=== PATIENT | female | born 1950 | race Caucasian/White ===

== ENCOUNTER → 2016-11-14 | Outpatient (CLI) | payer MEDICARE, MEDICAID ==
--- NOTE | 2016-11-14 14:51 | ECGEPIP ---
Stationary ECG Study [facility] Test Date: 2016-11-14 Pat Name: PIPER RESENDEZ Department: Room: - Gender: F Measurement Operator: MIGDALIA : 1950 Requested By: León Thomason Order Number: [id number] Reading MD: León Brice Measurements Intervals Rainbow Rate: 60 P: 45 ID: [id number] QRS: 27 QRSD: 93 T: 51 QT: 407 QTc: 409 Interpretive Statements SINUS RHYTHM, Within normal limits. No prior ECG available for comparison at the time of interpretation. Electronically Signed On 11-14-2016 14:51:20 EST by León Brice
--- NOTE | 2016-11-14 15:17 | REP ---
Clinical: Preoperative assessment . Comparison: 11/25/2014 . Technique: PA and lateral. Findings: The mediastinum and cardiac silhouette are normal. The lung herrera demonstrate chronic stable changes without acute consolidation, effusion, or pneumothorax. The skeletal structures are intact and normal. Impression: 1. No acute cardiopulmonary process. Signed by Adal West MD 11/14/2016 03:09 P
[2016-11-14 15:37] LABS: ANION GAP 7 MEQ/L (8-16); BLOOD UREA NITROGEN 12 MG/DL (7-18); CARBON DIOXIDE LEVEL 28 MEQ/L (21-32); CHLORIDE LEVEL 110 MEQ/L (98-107); CREATININE FOR GFR 0.65 MG/DL (0.55-1.02); GLOMERULAR FILTRATION RATE > 60.0 (>45); GLUCOSE, FASTING 86 MG/DL (80-110); POTASSIUM SERUM 4.1 MEQ/L (3.5-5.1); SODIUM LEVEL 145 MEQ/L (136-145)
== END ==
LOC: M LAB 14:15
PROVIDERS: ATTEND Ophthalmology
DX: H02.423 Myogenic ptosis of bilateral eyelids (principal); H02.831 Dermatochalasis of right upper eyelid; H02.834 Dermatochalasis of left upper eyelid